=== PATIENT | female | born 1960 | race Caucasian/White ===

== ENCOUNTER 2021-11-13 19:00 | Inpatient (IN) | payer MEDICARE, OTHER ==
[~2021-11-13] VITALS: Ht 167.6 cm; Wt 50.0 kg
[2021-11-13 19:58] LABS: Hematocrit 40.3 % (33.0-51.0); Hemoglobin 13.6 g/dL (11.5-16.0); Mean Corpuscular HGB 29.6 pg (26.0-34.0); Mean Corpuscular HGB Conc 33.7 g/dL (31.5-36.5); Mean Corpuscular Volume 88 fL (80-100); Platelet Count 280 K/mm3 (150-400); RDW Coefficient Variation 17.5 % (11.7-14.2); RDW Standard Deviation 55.6 fL (35.1-46.3)
[2021-11-13 20:18] LABS: Albumin, Blood 2.3 g/dL (3.4-5.0); Albumin/Globulin Ratio 0.5 (0.8-1.8); Bilirubin, Total 0.2 mg/dL (0.1-1.0); Bun/Creatinine Ratio 19.5 (12.0-20.0); Calcium, Blood 8.1 mg/dL (8.5-10.1); Creatinine, Blood 0.72 mg/dL (0.40-1.00); Globulin, Blood 4.7 g/dL (2.2-4.0); Potassium, Blood 3.5 mmol/L (3.5-5.5)
[2021-11-13 20:19] LABS: Mean Platelet Volume 12.8 fL (9.1-12.4); White Blood Cell Count 23.77 K/mm3 (4.00-11.30)
[2021-11-13 20:22] LABS: BAND PERCENT MAN 2 % (0-8); BASOPHILS PERCENT MAN 0 % (0-2); EOSINOPHILS ABSOLUTE MAN 0.71 K/mm3 (0.00-0.68); EOSINOPHILS PERCENT MAN 3 % (0-6); LYMPHOCYTES ABSOLUTE MAN 1.42 K/mm3 (0.84-5.20); LYMPHOCYTES PERCENT MAN 6 % (21-46); MONOCYTES ABSOLUTE MAN 0.71 K/mm3 (0.16-1.47); MONOCYTES PERCENT MAN 3 % (4-13); MYELOCYTE ABSOLUTE MAN 0.47 K/mm3 (0.00-0.00); MYELOCYTE PERCENT MAN 2 % (0-0); NEUTROPHILS ABSOLUTE MAN 20.44 K/mm3 (1.96-9.15); SEG NEUTROPHILS PERCENT MAN 84 % (41-73); TOTAL CELLS COUNTED 100
[2021-11-13 20:33] LABS: Source, Urine Clean Catch
[2021-11-13 20:36] LABS: Bilirubin, Urine Neg (Neg); Blood, Urine 1+ (Neg); Glucose Qualitative, Urine Neg (Neg); Ketones, Urine Neg (Neg); Leukocyte Esterase, Urine 1+ (Neg); Nitrite, Urine Pos (Neg); Protein, Urine 2+ (Neg); Urobilinogen, Urine 1+ (Normal)
[2021-11-13 20:38] LABS: Appearance, Urine Hazy (Clear); Color, Urine Yellow (P-Yellow)
[2021-11-13 20:53] LABS: Bacteria Mod /hpf; Red Blood Cells, Urine 0-2 /hpf (0-2); Squamous Epithelial Cells Few /hpf (Few)
[2021-11-13 21:14] LABS: Influenza A, PCR NEGATIVE (NEGATIVE); Influenza B, PCR NEGATIVE (NEGATIVE); Resp Syncytial Virus, PCR NEGATIVE (NEGATIVE); SARS-Cov-2 (COVID-19) PCR, MMC NEGATIVE (NEGATIVE)
[2021-11-14 00:21] LABS: U Amphetamine Screen DETECTED; U Methamphetamine Screen DETECTED
[2021-11-14 00:22] LABS: U Barbituate Screen Not Detected; U Benzodiazapine Screen DETECTED; U Buprenorphine Screen Not Detected; U Cannabinoids Screen DETECTED; U Cocaine Screen Not Detected; U Methadone Screen Not Detected; U Opiates Screen Not Detected; U Oxycodone Screen Not Detected; U Phencyclidine Screen Not Detected; U Propoxyphene Screen Not Detected
[2021-11-14] MEDS ORDERED: DIAZEPAM10 MG PO (01:53)
[2021-11-14] MEDS ORDERED: POTCHL20ER PO (01:56)
[2021-11-14] MEDS ORDERED: ENTRESTO 24 MG1 EACH PO (01:57)
[2021-11-14] MEDS ORDERED: SPIR25 PO (01:58)
[2021-11-14] MEDS ORDERED: FURO20 PO (02:00)
[2021-11-14] MEDS ORDERED: IPRAT-ALBUT 0.5-3 ML INH (02:03)
[2021-11-14] MEDS ORDERED: ALBU2.5V5 INH (02:04)
[2021-11-14 04:23] LABS: BASOPHILS PERCENT AUTO 1 % (0-2); EOSINOPHILS ABSOLUTE AUTO 0.38 K/mm3 (0.00-0.68); EOSINOPHILS PERCENT AUTO 2 % (0-6); Hematocrit 36.9 % (33.0-51.0); Hemoglobin 12.5 g/dL (11.5-16.0); IMMATURE GRAN ABSOLUTE AUTO 0.77 K/mm3 (0.00-0.10); IMMATURE GRAN PERCENT AUTO 3 % (0-1); LYMPHOCYTES ABSOLUTE AUTO 1.93 K/mm3 (0.84-5.20); LYMPHOCYTES PERCENT AUTO 9 % (21-46); MONOCYTES ABSOLUTE AUTO 1.03 K/mm3 (0.16-1.47); MONOCYTES PERCENT AUTO 5 % (4-13); Mean Corpuscular HGB 29.6 pg (26.0-34.0); Mean Corpuscular HGB Conc 33.9 g/dL (31.5-36.5); Mean Corpuscular Volume 87 fL (80-100); NEUTROPHILS PERCENT AUTO 81 % (41-73); Platelet Count 289 K/mm3 (150-400); RDW Coefficient Variation 17.2 % (11.7-14.2); RDW Standard Deviation 55.5 fL (35.1-46.3); Red Blood Cell Count 4.22 M/mm3 (3.80-5.20); White Blood Cell Count 22.51 K/mm3 (4.00-11.30)
[2021-11-14 04:25] LABS: Mean Platelet Volume 13.5 fL (9.1-12.4)
[2021-11-14 04:43] LABS: Albumin, Blood 2.2 g/dL (3.4-5.0); Albumin/Globulin Ratio 0.5 (0.8-1.8); Bilirubin, Total 0.3 mg/dL (0.1-1.0); Bun/Creatinine Ratio 19.4 (12.0-20.0); Calcium, Blood 8.2 mg/dL (8.5-10.1); Creatinine, Blood 0.62 mg/dL (0.40-1.00); Globulin, Blood 4.1 g/dL (2.2-4.0); Potassium, Blood 3.8 mmol/L (3.5-5.5); Total Protein, Blood 6.3 g/dL (6.4-8.2)
--- NOTE | 2021-11-14 06:03 | NUR ---
SHIFT SUMMARY PT CAME TO PCU THIS AM FOR DYSPNEA AND SEPSIS. PT HAS C/O SOB AND WAS SATURATING >95% ON RA. TO HELP W/ DYSPNEA, RT PLACED THE PT ON CPAP AND STATED THAT SHE SHOULD BE ENCOURAGED TO WEAR IT MUCH POSSIBLE BUT CAN TAKE IT OFF DURING THE DAY. PT IS NOT HAVING ANY PAIN, ANGINA, OR DIZZINESS AT THIS TIME. PT IS IND W/ AMBULATION, BUT WAS EDUCATED TO CALL FOR ASSISTANCE WHEN GETTING UP TO THE BATHROOM BECAUSE OF SOME DIZZINESS WHEN IN THE ED. PT'S HAS BEEN AT BEDSIDE SINCE ADMISSION, AND THE PT IS RESTING. SHE HAS A BASKET W/ ALL HER MEDICATIONS, BUT THE LABLES ON SOME OF THE BOTTLES ARE NOT LEGABLE, PT DOES NOT KNOW EXACTLY WHAT THEY ARE, BUT TAKES THEM. SHE STATES THAT ONE OF HER DIURETICS MAKES HER SICK SO SHE DOES NOT TAKE IT DIRECTED. SHE IS ANXIOUS, BUT COOPERATIVE. WILL CONTINUE TO MONITOR UNTIL REPORT IS GIVEN TO THE ONCOMING SHIFT RN. SEE NOTES FOR ANY UPDATES.
--- NOTE | 2021-11-14 09:46 | NUR ---
ASSUMPTION OF CARE THIS RN ASSUMED CARE OF PATIENT AT 0700. REPORT TAKEN FROM MARAL REED. PATIENT'S VITALS STABLE. HTN NOTED THIS AM; PATIENT RECEIVED SCHEDULED MEDICATION; SEE EMAR. PATIENT A&O X4. CALM AND COOPERATIVE WITH CARE. ON RA WITH O2 SATS 94-97%. PATIENT INDEPENDENT WITH ADL'S; STEADY GAIT NOTED BY THIS RN. PATIENT BECAME NAUSEOUS AFTER BREAKFAST THIS AM; MEDICATED PER EMAR. PATIENT CALLING APPROPRIATELY. BED IN LOWEST POSITION AND CALL LIGHT WITHIN REACH. COMMODE PLACED AT BEDSIDE DUE TO LASIX AND FREQUENT URINATION. ECHO COMPLETED THIS AM.
[2021-11-14 12:38] LABS: CPK Creatine Kinase 33 U/L (26-193)
--- NOTE | 2021-11-14 16:39 | NUR ---
SHIFT SUMMARY PATIENT A&OX4. CALM AND COOPERATIVE WITH CARE. MEDICATING PER EMAR; DENIES PAIN. PATIENT HAD ECHO DONE THIS AM; EF OF 10%. FLATWORK FEEDER CONSULT PLACED/CALLED IN. FLATWORK FEEDER TO BEDSIDE THIS AM WITH PLANS FOR ANGIO TOMORROW MORNING 11/15. PATIENT SIGNED CONSENT AND DENIED FURTHER QUESTIONS FROM FLATWORK FEEDER. EDUCATION DONE THROUGHOUT SHIFT REGARDING FLUID INTAKE FOR PATIENT AND "" WHO IS AT BEDSIDE. PATIENT CONTINUES TO ASK FOR LIQUIDS FREQUENTLY; NO FLUID RESTRICTION CURRENTLY; REINFORCED EDUCATION DUE TO LOW EF. PATIENT INDEPENDENT WITH TRANSFERS/ADLs. COMMODE AT BEDSIDE DUE TO FREQUENCY/URGENCY DUE TO LASIX AND UTI. PATIENT ON REGULAR DIET CURRENTLY BUT WILL BE NPO AT MIDNIGHT FOR PROCEDURE IN THE MORNING. PATIENT ON 1-2L VIA NC TO MAINTAIN SATS >92%. MEDICATED PER EMAR WITH METOPROLOL PER FLATWORK FEEDER ORDER; SBP 90'S, MAP REMAINS >70. PATIENT DIAPHORETIC OFF/ON DURING THIS SHIFT. SR ON THE MONITOR WITH HR IN THE 80S. PATIENT CALLING APPROPRIATELY WITH BED IN LOWEST POSITION AND CALL LIGHT WITHIN REACH. THIS RN WILL CONTINUE TO MONITOR AND MEDICATE PER EMAR UNTIL SHIFT CHANGE AT 1900.
[2021-11-15 03:39] LABS: Anion Gap 6 mmol/L (6-16); Blood Urea Nitrogen 18 mg/dL (8-24); Bun/Creatinine Ratio 24.8 (12.0-20.0); CHOL/HDL RATIO 4.3; CO2, Blood 29 mmol/L (21-32); Calcium, Blood 9.3 mg/dL (8.5-10.1); Chloride, Blood 102 mmol/L (98-108); Cholesterol 151 mg/dL (50-200); Creatinine, Blood 0.73 mg/dL (0.40-1.00); Glomerular Filtration Rate 94 (60-); Glucose, Blood 202 mg/dL (70-99); HDL Cholesterol 35 mg/dL (>39); LDL/HDL RATIO 2.8; Low Density Lipoprotein Chol 99 mg/dL (0-110); Magnesium, Blood 1.9 mg/dL (1.6-2.4); Potassium, Blood 4.8 mmol/L (3.5-5.5); Sodium, Blood 137 mmol/L (136-145); Triglycerides 86 mg/dL (30-160); Very Low Density Lipoprot Chol 17 mg/dL (6-32)
--- NOTE | 2021-11-15 06:25 | NUR ---
SHIFT SUMMARY PT IS A&0X4, MOVES IND IN BED, VS HAVE BEEN STABLE T/O THE SHIFT, AND SHE HAS BEEN SLEEPING MAJORITY OF THE NIGHT. PT HAS BEEN NPO SINCE MIDNIGHT FOR ANGIO THIS AM. SHE HAS NO REPORTS OF SOB, ANGINA, NAUSEA, PAIN, OR DIZZINESS. HER SIGNIFICANT OTHER CALLED FOR AN UPDATE AND IS ON HIS WAY TO VISIT. WILL CONTINUE TO MONITOR UNTIL SHIFT REPORT IS GIVEN TO THE ONCOMING SHIFT RN. SEE NOTES FOR UPDATES.
--- NOTE | 2021-11-15 10:36 | NUR ---
AM NOTE: PATIENT ALERT AND ORIENTED X4. UP IND TO BSC. DENIES NUMBNESS/TINGLING. PERRLA. ON 2L NASAL CANNULA SATING MID 90'S. SOB WITH EXERTION. TELE SHOWING SINUS RHYTHM WITH HR 90-100'S. DENIES CHEST PAIN/PRESSURE. BP STABLE. NO SIGNS OF EDEMA. SPOKE WITH DR. IRAHETA THIS AM, PLAN TO DEFER ANGIO FOR NOW AND WAIT UNTIL INFECTION AND VOLUME OVERLOAD IS MORE CONTROLLED. PATIENT UPDATED AND UNDERSTANDING. AT BEDSIDE. DENIES ABDOMINAL PAIN. NAUSEA THIS AM, MEDICATED WITH ZOFRAN WITH GOOD RELIEF. DIET ORDERED SINCE NO ANGIO. ANTIBIOTICS INFUSED. CALLING FOR NEEDS. WILL CONTINUE TO MONITOR.
--- NOTE | 2021-11-15 17:51 | NUR ---
SHIFT SUMMARY: NO ACUTE CHANGES THROUGHOUT SHIFT. PATIENT REMAINS ALERT AND ORIENTED. WEARING 1-2L THROUGHOUT DAY, AT TIMES ON ROOM AIR SATING ABOVE 95%. TELE REMAINS SINUS RHYTHM WITH HR 80-90'S. BP STABLE. DENIES CHEST PAIN/PRESSURE. EATING WELL. DENIES ABDOMINAL PAIN/NAUSEA. UP TO BSC TO VOID. ABX INFUSED. MEDICATED X1 FOR NAUSEA. WITH GOOD RELIEF. IN AND UPDATED. WILL CONTINUE TO MONITOTR
[2021-11-16 04:21] LABS: Hematocrit 44.9 % (33.0-51.0); Hemoglobin 14.6 g/dL (11.5-16.0); Mean Corpuscular HGB Conc 32.5 g/dL (31.5-36.5); Mean Corpuscular Volume 89 fL (80-100); Mean Platelet Volume 13.1 fL (9.1-12.4); Platelet Count 455 K/mm3 (150-400); RDW Coefficient Variation 17.2 % (11.7-14.2); RDW Standard Deviation 55.4 fL (35.1-46.3); Red Blood Cell Count 5.04 M/mm3 (3.80-5.20); White Blood Cell Count 35.57 K/mm3 (4.00-11.30)
[2021-11-16 04:43] LABS: Albumin, Blood 2.2 g/dL (3.4-5.0); Albumin/Globulin Ratio 0.5 (0.8-1.8); Bilirubin, Total 0.2 mg/dL (0.1-1.0); Bun/Creatinine Ratio 31.2 (12.0-20.0); Calcium, Blood 9.2 mg/dL (8.5-10.1); Creatinine, Blood 0.74 mg/dL (0.40-1.00); Globulin, Blood 4.4 g/dL (2.2-4.0); Magnesium, Blood 1.7 mg/dL (1.6-2.4); Potassium, Blood 4.6 mmol/L (3.5-5.5); Total Protein, Blood 6.6 g/dL (6.4-8.2)
--- NOTE | 2021-11-16 06:30 | NUR ---
SHIFT SUMMARY PT IS A&OX4, IND IN HER ROOM, HAS BEEN ON RA MAJORITY OF THE SHIFT W/ SP02 >95%, AND HAS HAD NO C/O ANGINA OR SOB. PT STATES THAT SHE IS FEELING "PRETTY GOOD" TODAY AND HAS NO COMPLAINTS. AN ECHO DONE SHOWED AN EF OF 10% AND SHE WAS SCHEDULED FOR AN ANGIO ON 11/15 BUT IT WAS DEFFERED DUE TO A HIGH WBC LEVEL OF 22.5 ON 11/14. TODAYS AM LABS INDICATED A WBC LEVEL OF 35.57. DR. ANDERSEN CALLED AND THE PT WAS STARTED ON VANCOMYACIN. ALL VS HAVE BEEN STABLE TONIGHT. WILL CONTINUE TO TO MONITOR UNTIL REPORT IS GIVEN TO THE ONCOMING SHIFT RN. SEE NOTES FOR ANY UPDATES.
--- NOTE | 2021-11-16 17:20 | NUR ---
SHIFT SUMMARY PT IS ALERT AND ORIENTED X 4, SHE IS PLEASANT AND COOPERATIVE WITH CARE. HR AND BP STABLE, SHE HAS CONTINUED TO DENY FEELINGS OF CHEST PAIN/PRESSURE. SHE DENIES FEELING LIGHTHEADED/DIZZY WHEN AMBULATING. SHE HAS REPORTED FEELING FATIGUED AND THIS AM AFTER MEDICATION ADMINISTRATION REPORTED FEELING "CRUMMY." ZOFRAN GIVEN FOR NAUSEA, SEE EMAR. WARM BLANKET AND UNINTERRUPTED REST ALSO PROVIDED. SPO2 97% VIA ROOM AIR, SHE HAS CONTINUED TO DENY FEELING SOB, OCCASIONAL COUGH NOTED. IV IN LEFT FOREARM IS SALINE LOCKED. SHE IS INDEPENDENT TO BEDSIDE COMMODE. HER WAS AT BEDSIDE THIS AM. SPEECH THERAPY EVALUATED PT THIS AFTERNOON. NO ACUTE CHANGES NOTED. PT NOW WATCHING T.V, CALL LIGHT IN REACH. WILL CONTINUE TO MONITOR UNTIL REPORT GIVEN.
[2021-11-17 05:40] LABS: Hematocrit 46.5 % (33.0-51.0); Hemoglobin 15.6 g/dL (11.5-16.0); Mean Corpuscular HGB 29.5 pg (26.0-34.0); Mean Corpuscular HGB Conc 33.5 g/dL (31.5-36.5); Mean Corpuscular Volume 88 fL (80-100); Mean Platelet Volume 12.8 fL (9.1-12.4); Platelet Count 507 K/mm3 (150-400); RDW Coefficient Variation 16.8 % (11.7-14.2); RDW Standard Deviation 53.6 fL (35.1-46.3); Red Blood Cell Count 5.29 M/mm3 (3.80-5.20); White Blood Cell Count 18.78 K/mm3 (4.00-11.30)
[2021-11-17 06:06] LABS: BASOPHILS PERCENT MAN 0 % (0-2); EOSINOPHILS ABSOLUTE MAN 0.37 K/mm3 (0.00-0.68); EOSINOPHILS PERCENT MAN 2 % (0-6); LYMPHOCYTES ABSOLUTE MAN 4.13 K/mm3 (0.84-5.20); LYMPHOCYTES PERCENT MAN 22 % (21-46); METAMYELOCYTE ABSOLUTE MAN 0.18 K/mm3 (0.00-0.00); METAMYELOCYTE PERCENT MAN 1 % (0-0); MONOCYTES ABSOLUTE MAN 0.56 K/mm3 (0.16-1.47); MONOCYTES PERCENT MAN 3 % (4-13); MYELOCYTE ABSOLUTE MAN 0.75 K/mm3 (0.00-0.00); MYELOCYTE PERCENT MAN 4 % (0-0); NEUTROPHILS ABSOLUTE MAN 12.77 K/mm3 (1.96-9.15); SEG NEUTROPHILS PERCENT MAN 68 % (41-73); TOTAL CELLS COUNTED 100
[2021-11-17 06:18] LABS: Bun/Creatinine Ratio 32.9 (12.0-20.0); Calcium, Blood 9.2 mg/dL (8.5-10.1); Creatinine, Blood 0.91 mg/dL (0.40-1.00); Magnesium, Blood 1.9 mg/dL (1.6-2.4); Potassium, Blood 4.4 mmol/L (3.5-5.5)
--- NOTE | 2021-11-17 06:57 | NUR ---
SHIFT SUMMARY: PATIENT VSS ON RA T/O NIGHT. DENIES CHEST PAIN/SOB/N/V/D. MEDICATED PER EMAR. WBC IMPROVED FROM YESTERDAY. PATIENT NPO SINCE MIDNIGHT. PLEASANT AND COOPERATIVE WITH CARE. NO ADVERSE EVENTS THIS SHIFT. BED LOW WITH CALL LIGHT IN PLACE. WILL CONTINUE TO MONITOR AND REPORT TO DAY RN.
--- NOTE | 2021-11-17 12:34 | NUR ---
UPDATE/TRANSFER OF CARE THIS RN ENTERED THE ROOM AND MEASURED VITALS. PT WAS ALERT AND REQUESTED A WARM BLANKET WHICH WAS PROVIDED. BLOOD PRESSURE RETURNED AT 91/67. THIS RN LEFT THE ROOM. THE PT'S SPOUSE EXITED THE ROOM TO NOTIFY THIS RN OF AN ALARM. THIS RN ENTERED THE ROOM AND NOTED A BLOOD PRESSURE ON THE MONITOR OF 75/33. THIS RN REPOSITIONED THE BLOOD PRESSURE CUFF AND RETURNED A READING OF 51/35. THIS RN ACTIVATED THE RAPID RESPONSE TEAM IN UNIT AND CALLED THE ARBORICULTURE TEACHER AND HOSPITALIST MANAGING THIS PT. PT WAS THEN TRANSFERRED TO ICU AND BEDSIDE REPORT WAS GIVEN TO MIGUEL ANGEL FAJARDO RN.
--- NOTE | 2021-11-17 13:20 | NUR ---
ASSUMED CARE: PT TRANSFERRED TO ICU FOR CARDIOGENIC SHOCK. DECREASED BP AND DIAPHORETIC. ICU RADIATION OFFICER AT BEDSIDE WITH RESIDENT. PT TRANSFERRED TO ICU 11. DR IRAHETA AND DR GOODMAN CAME TO SEE PT. UPON ARRIVAL TO UNIT, PT WAS ON DOPAMINE AT 10MCG/KG. DR IRAHETA ADVISED FOR LEVOPHED. STARTED THIS AT 5MCG/KG. DOPAMINE TITRATE TO 5MCG. SHORTLY THEREAFTER LEVOPHED TITRATED TO 2MCG THEN OFF. DR IRAHETA ADVISED LEVOPHED TO BE TITRATED DOWN TO 2MCG/KG BUT PT'S VITAL SIGNS DID NOT SUPPORT THIS. RETURNED TO 5MCG. DR IRAHETA CAME INTO ROOM AND TITRATED LEVOPHED TO 4MCG/KG WHICH IS WHERE SETTING IS NOW. PT'S AT BEDSIDE. BOLUS OF 500CC NS COMPLETED. PT ALERT AND TALKING TO STAFF AT THIS TIME. STATES HER NAME, , AND AWARE OF WHERE SHE IS. CALL LIGHT IN REACH
[2021-11-17 13:42] LABS: Hematocrit 47.8 % (33.0-51.0); Hemoglobin 15.7 g/dL (11.5-16.0); Mean Corpuscular HGB 29.4 pg (26.0-34.0); Mean Corpuscular HGB Conc 32.8 g/dL (31.5-36.5); Mean Corpuscular Volume 90 fL (80-100); Mean Platelet Volume 12.8 fL (9.1-12.4); NRBC ABSOLUTE 0.02 K/mm3 (0.00-0.02); NRBC Auto 0.1 /100 WBC (0.0-0.2); Platelet Count 653 K/mm3 (150-400); RDW Standard Deviation 55.7 fL (35.1-46.3); Red Blood Cell Count 5.34 M/mm3 (3.80-5.20); White Blood Cell Count 25.94 K/mm3 (4.00-11.30)
[2021-11-17 13:44] LABS: Albumin, Blood 2.7 g/dL (3.4-5.0); Albumin/Globulin Ratio 0.6 (0.8-1.8); Bilirubin, Total 0.2 mg/dL (0.1-1.0); Bun/Creatinine Ratio 31.6 (12.0-20.0); Calcium, Blood 9.6 mg/dL (8.5-10.1); Creatinine, Blood 0.92 mg/dL (0.40-1.00); Globulin, Blood 4.6 g/dL (2.2-4.0); Potassium, Blood 4.6 mmol/L (3.5-5.5); Total Protein, Blood 7.3 g/dL (6.4-8.2)
[2021-11-17 15:05] LABS: BAND PERCENT MAN 1 % (0-8); BASOPHILS ABSOLUTE MAN 0.25 K/mm3 (0.00-0.23); BASOPHILS PERCENT MAN 1 % (0-2); EOSINOPHILS ABSOLUTE MAN 1.03 K/mm3 (0.00-0.68); EOSINOPHILS PERCENT MAN 4 % (0-6); LYMPHOCYTES PERCENT MAN 22 % (21-46); METAMYELOCYTE ABSOLUTE MAN 0.51 K/mm3 (0.00-0.00); METAMYELOCYTE PERCENT MAN 2 % (0-0); MONOCYTES ABSOLUTE MAN 1.03 K/mm3 (0.16-1.47); MONOCYTES PERCENT MAN 4 % (4-13); MYELOCYTE ABSOLUTE MAN 0.51 K/mm3 (0.00-0.00); MYELOCYTE PERCENT MAN 2 % (0-0); NEUTROPHILS ABSOLUTE MAN 16.86 K/mm3 (1.96-9.15); SEG NEUTROPHILS PERCENT MAN 64 % (41-73); TOTAL CELLS COUNTED 100
--- NOTE | 2021-11-17 15:49 | NUR ---
THIS RN NOTED THAT ABG WAS NOT COMPLETED DURING PT'S HYPOTENSION EPISODE. CALL TO DR THOMASON WHO FELT IT WAS NOT NEEDED BASED ON PT'S CURRENT VITALS. DR GOODMAN CALLED TO CHECK ON PT AND STATED HE DID NOT FEEL IT WAS NECESSARY EITHER.
[2021-11-17 16:51] LABS: Vancomycin, Trough 14.2 ug/mL (5.0-10.0)
--- NOTE | 2021-11-17 18:27 | NUR ---
SHIFT SUMMARY: PT HAS BEEN OFF LEVOPHED SINCE 1515. VSS. DR IRAHETA CAME TO CHECK ON PT WITH NO CHANGES TO ORDERS. RA, NSR ON TELE. AT BEDSIDE. NO ACUTE NEEDS OR CONCERNS AT THIS TIME.
--- NOTE | 2021-11-17 20:00 | NUR ---
ASSUMED CARE: PT RESTING ON ROOM AIR. RIGHT RADIAL SITE INTACT WITH NO BRUISING OR SIGNS OF BLEEDING. ADDRESSED NEEDS AT THIS TIME.
[2021-11-18 03:30] LABS: Hematocrit 46.3 % (33.0-51.0); Hemoglobin 15.8 g/dL (11.5-16.0); Mean Corpuscular HGB 29.5 pg (26.0-34.0); Mean Corpuscular HGB Conc 34.1 g/dL (31.5-36.5); Mean Corpuscular Volume 87 fL (80-100); Mean Platelet Volume 12.8 fL (9.1-12.4); Platelet Count 485 K/mm3 (150-400); RDW Coefficient Variation 16.6 % (11.7-14.2); RDW Standard Deviation 52.5 fL (35.1-46.3); Red Blood Cell Count 5.35 M/mm3 (3.80-5.20)
[2021-11-18 03:31] LABS: NRBC ABSOLUTE 0.02 K/mm3 (0.00-0.02); NRBC Auto 0.1 /100 WBC (0.0-0.2); White Blood Cell Count 21.63 K/mm3 (4.00-11.30)
[2021-11-18 03:48] LABS: Bun/Creatinine Ratio 32.5 (12.0-20.0); Calcium, Blood 8.6 mg/dL (8.5-10.1); Creatinine, Blood 0.77 mg/dL (0.40-1.00); Potassium, Blood 4.7 mmol/L (3.5-5.5)
[2021-11-18 03:52] LABS: BASOPHILS ABSOLUTE MAN 0.21 K/mm3 (0.00-0.23); BASOPHILS PERCENT MAN 1 % (0-2); EOSINOPHILS ABSOLUTE MAN 0.64 K/mm3 (0.00-0.68); EOSINOPHILS PERCENT MAN 3 % (0-6); LYMPHOCYTES ABSOLUTE MAN 5.19 K/mm3 (0.84-5.20); LYMPHOCYTES PERCENT MAN 24 % (21-46); METAMYELOCYTE ABSOLUTE MAN 0.43 K/mm3 (0.00-0.00); METAMYELOCYTE PERCENT MAN 2 % (0-0); MONOCYTES ABSOLUTE MAN 0.43 K/mm3 (0.16-1.47); MONOCYTES PERCENT MAN 2 % (4-13); MYELOCYTE ABSOLUTE MAN 0.21 K/mm3 (0.00-0.00); MYELOCYTE PERCENT MAN 1 % (0-0); NEUTROPHILS ABSOLUTE MAN 14.49 K/mm3 (1.96-9.15); SEG NEUTROPHILS PERCENT MAN 67 % (41-73); TOTAL CELLS COUNTED 100
--- NOTE | 2021-11-18 05:58 | NUR ---
SHIFT SUMMARY: PT PLACED ON 2L NC OVERNIGHT. HYDROXYZINE GIVEN ONCE. PT RESTING COMFORTABLY IN BED.
--- NOTE | 2021-11-18 10:18 | NUR ---
PT A/O X4. DENIES PAIN, CP, SOB, AND N/V. R RADIAL ACCESS SITE IS STABLE, NO SIGN OF BLEEDING. PT CHANGED TO PCU STATUS. NO SIGN OF DISTRESS.
[2021-11-18] MEDS ORDERED: ASPI81CH PO (15:46)
[2021-11-18] MEDS ORDERED: ATOR40TA PO (15:46)
[2021-11-18] MEDS ORDERED: Nicoderm Cq1 EAC1 TOP (15:47)
[2021-11-18] MEDS ORDERED: POTCHL20ER PO (15:48)
[2021-11-18] MEDS ORDERED: LOSA25 PO (15:50)
[2021-11-18] MEDS ORDERED: Toprol Xl25 MG PO (15:51)
--- NOTE | 2021-11-18 16:12 | NUR ---
SUMMARY PT A/O X4. DENIES PAIN ALL DAY. NO BP ISSUES TODAY. R RADIAL ACCESS SITE IS STABLE. PT OK FOR DISCHARGE. D/C INSTRUCTIONS GONE OVER WITH PT AND . NO SIGN OF DISTRESS PT LEAVES THE UNIT. PT GIVEN LIST OF [facility]PTING [facility] WILL BE FOLLOWING UP WITH PT TO MAKE OUTPT APPOINTMENT.
== END 2021-11-18 16:08 | disposition home or self-care (01) | DRG 286 ==
LOC: ER 19:00 → ICUW 11-14 00:23 → ER 11-14 00:23 → PCU 11-14 02:06 → ICUW 11-17 12:21 → ICUE 11-17 18:13
PROVIDERS: Emergency Medicine; Family Medicine; Internal Medicine; Internal Medicine Cardiovascular Disease; Student in an Organized Health Care Education/Training Program; ADMIT Internal Medicine
PROC: 3E03329 Introduction of Other Anti-infective into Peripheral Vein, Percutaneous Approach (ICD-10-PCS; 2021-11-14)
PROC: 4A023N7 Measurement of Cardiac Sampling and Pressure, Left Heart, Percutaneous Approach (ICD-10-PCS; 2021-11-15)
PROC: B2111ZZ Fluoroscopy of Multiple Coronary Arteries using Low Osmolar Contrast (ICD-10-PCS; 2021-11-15)
PROC: 3E033XZ Introduction of Vasopressor into Peripheral Vein, Percutaneous Approach (ICD-10-PCS; principal; 2021-11-17)
PROC: 4A023N7 Measurement of Cardiac Sampling and Pressure, Left Heart, Percutaneous Approach (ICD-10-PCS; 2021-11-17)
PROC: B2111ZZ Fluoroscopy of Multiple Coronary Arteries using Low Osmolar Contrast (ICD-10-PCS; 2021-11-17)
DX: I11.0 Hypertensive heart disease with heart failure (principal); A41.9 Sepsis, unspecified organism; E43 Unspecified severe protein-calorie malnutrition; I50.23 Acute on chronic systolic (congestive) heart failure; J96.21 Acute and chronic respiratory failure with hypoxia; J69.0 Pneumonitis due to inhalation of food and vomit; J18.9 Pneumonia, unspecified organism; N39.0 Urinary tract infection, site not specified; J44.0 Chronic obstructive pulmonary disease with (acute) lower respiratory infection; I42.8 Other cardiomyopathies; I25.10 Atherosclerotic heart disease of native coronary artery without angina pectoris; I95.9 Hypotension, unspecified; F15.10 Other stimulant abuse, uncomplicated; F17.210 Nicotine dependence, cigarettes, uncomplicated; R73.9 Hyperglycemia, unspecified; B18.2 Chronic viral hepatitis C; E78.5 Hyperlipidemia, unspecified; Z91.038 Other insect allergy status; Z91.048 Other nonmedicinal substance allergy status; Z79.899 Other long term (current) drug therapy; Z71.6 Tobacco abuse counseling; Z91.199 Patient's noncompliance with other medical treatment and regimen due to unspecified reason; Z88.6 Allergy status to analgesic agent; Z88.5 Allergy status to narcotic agent; Z88.0 Allergy status to penicillin; I25.2 Old myocardial infarction; Z95.5 Presence of coronary angioplasty implant and graft
CPT/HCPCS: 0241U; 36415; 71045; 71046; 76937; 80048; 80053; 80061; 80202; 81001; 82550; 82947; 83036; 83605; 83735; 83880; 84484; 85007; 85025; 85027; 87040; 87070; 87077; 87086; 87186; 87205; 92610; 93005; 93010; 93306; 93458; 94640; 94660; 94664; 94762; 96365; 96367; 96375; 99152; 99153; 99285-25; A9270; C1769; C1887; C1894; J0456; J0696; J1170; J1265; J1644; J1650; J1940; J2250; J2405; J2930; J3010; J3370; J7030; J7040; J7050; J7060; Q9967

== ENCOUNTER 2022-08-16 18:21 | Inpatient (IN) | payer MEDICARE, OTHER ==
[~2022-08-16] VITALS: Ht 167.6 cm; Wt 45.9 kg
[~2022-08-16 18:21] MED LIST: ALBU2.5V5 INH; ASPI81CH PO; ATOR40TA PO; DIAZEPAM10 MG PO; ENTRESTO 24 MG1 EACH PO; FURO20 PO; IPRAT-ALBUT 0.5-3 ML INH; LOSA25 PO; Nicoderm Cq1 EAC1 TOP; POTCHL20ER PO; SPIR25 PO; Toprol Xl25 MG PO
[2022-08-16 20:53] LABS: Albumin, Blood 2.6 g/dL (3.4-5.0); Albumin/Globulin Ratio 0.5 (0.8-1.8); Bilirubin, Total 0.3 mg/dL (0.1-1.0); Bun/Creatinine Ratio 18.4 (12.0-20.0); Calcium, Blood 8.8 mg/dL (8.5-10.1); Creatinine, Blood 2.56 mg/dL (0.40-1.00); Globulin, Blood 5.6 g/dL (2.2-4.0); Potassium, Blood 4.7 mmol/L (3.5-5.5); Total Protein, Blood 8.2 g/dL (6.4-8.2)
[2022-08-16 21:11] LABS: Hematocrit 37.6 % (33.0-51.0); Hemoglobin 12.4 g/dL (11.5-16.0); Mean Corpuscular HGB 29.5 pg (26.0-34.0); Mean Corpuscular Volume 89 fL (80-100); RDW Coefficient Variation 15.9 % (11.7-14.2); RDW Standard Deviation 51.6 fL (35.1-46.3); Red Blood Cell Count 4.21 M/mm3 (3.80-5.20)
[2022-08-16 21:14] LABS: White Blood Cell Count 127.93 K/mm3 (4.00-11.30)
[2022-08-16 21:38] LABS: Influenza A, PCR NEGATIVE (NEGATIVE); Influenza B, PCR NEGATIVE (NEGATIVE); Resp Syncytial Virus, PCR NEGATIVE (NEGATIVE); SARS-Cov-2 (COVID-19) PCR, MMC NEGATIVE (NEGATIVE)
[2022-08-16 21:53] LABS: Source, Urine Straight Cath
[2022-08-16 22:18] LABS: BAND PERCENT MAN 2 % (0-8); BASOPHILS PERCENT MAN 0 % (0-2); EOSINOPHILS PERCENT MAN 0 % (0-6); LYMPHOCYTES ABSOLUTE MAN 1.27 K/mm3 (0.84-5.20); LYMPHOCYTES PERCENT MAN 1 % (21-46); METAMYELOCYTE ABSOLUTE MAN 1.27 K/mm3 (0.00-0.00); METAMYELOCYTE PERCENT MAN 1 % (0-0); MONOCYTES PERCENT MAN 0 % (4-13); MYELOCYTE ABSOLUTE MAN 2.55 K/mm3 (0.00-0.00); MYELOCYTE PERCENT MAN 2 % (0-0); NEUTROPHILS ABSOLUTE MAN 122.81 K/mm3 (1.96-9.15); SEG NEUTROPHILS PERCENT MAN 94 % (41-73); TOTAL CELLS COUNTED 100
[2022-08-16 22:20] LABS: Platelet Count 274 K/mm3 (150-400)
[2022-08-16 22:27] LABS: Bilirubin, Urine Neg (Neg); Blood, Urine Neg (Neg); Glucose Qualitative, Urine Neg (Neg); Ketones, Urine Neg (Neg); Leukocyte Esterase, Urine Neg (Neg); Nitrite, Urine Neg (Neg); Protein, Urine 3+ (Neg); Specific Gravity, Urine 1.025 (1.003-1.022); Urobilinogen, Urine NORM (Normal)
[2022-08-16 22:37] LABS: Appearance, Urine Hazy (Clear); Color, Urine Yellow (P-Yellow)
[2022-08-16 22:40] LABS: Bacteria Few /hpf; Granular Casts 0-2 /lpf (0); Hyaline Casts 0-2 /lpf (0-2); Red Blood Cells, Urine 0-2 /hpf (0-2); Squamous Epithelial Cells Not Seen /hpf (Few); White Blood Cells, Urine 0-2 /hpf (0-5)
[2022-08-16 22:41] LABS: U Amphetamine Screen DETECTED; U Cannabinoids Screen DETECTED; U Methamphetamine Screen DETECTED
[2022-08-16 22:42] LABS: U Barbituate Screen Not Detected; U Benzodiazapine Screen DETECTED; U Buprenorphine Screen Not Detected; U Cocaine Screen Not Detected; U Methadone Screen Not Detected; U Opiates Screen Not Detected; U Oxycodone Screen Not Detected; U Phencyclidine Screen Not Detected; U Propoxyphene Screen Not Detected
[2022-08-16 23:16] LABS: Base Excess Venous -8.4 mmol/L; Bicarbonate Venous 18.5 mmol/L (24.0-30.0); PCO2 Venous 32.1 mmHg (38-42); pH Blood Venous 7.34 (7.34-7.37)
[2022-08-16 23:18] LABS: Uric Acid, Blood 9.9 mg/dL (2.6-6.0)
[2022-08-17] VITALS (21 sets, daily range): BP systolic 73–114; BP diastolic 49–90
--- NOTE | 2022-08-17 00:58 | NUR ---
REVIEWED INFORMATION R/T ADMINISTERING THE CHEMO MED R/T ELEVATED WBC
--- NOTE | 2022-08-17 03:00 | NUR ---
PHYSICIAN COMMUNICATION NOTIFIED EXPLOSIVES ENGINEER RESIDENT, DR WU, THAT THE PATIENT'S HEART RATE WAS TRENDING UP, TOUCHING THE 130'S, AND THAT HER BLOOD PRESSURE WAS TRENDING DOWN. DR WU TO INPUT ORDER.
[2022-08-17 04:35] LABS: Hematocrit 32.8 % (33.0-51.0); Hemoglobin 10.8 g/dL (11.5-16.0); Mean Corpuscular HGB 29.7 pg (26.0-34.0); Mean Corpuscular HGB Conc 32.9 g/dL (31.5-36.5); Mean Corpuscular Volume 90 fL (80-100); Platelet Count 227 K/mm3 (150-400); RDW Coefficient Variation 15.5 % (11.7-14.2); RDW Standard Deviation 50.6 fL (35.1-46.3); Red Blood Cell Count 3.64 M/mm3 (3.80-5.20)
[2022-08-17 05:00] LABS: White Blood Cell Count 115.15 K/mm3 (4.00-11.30)
[2022-08-17 05:20] LABS: BAND PERCENT MAN 1 % (0-8); BASOPHILS PERCENT MAN 0 % (0-2); EOSINOPHILS PERCENT MAN 0 % (0-6); MONOCYTES PERCENT MAN 0 % (4-13); MYELOCYTE PERCENT MAN 4 % (0-0); NEUTROPHILS ABSOLUTE MAN 110.54 K/mm3 (1.96-9.15); SEG NEUTROPHILS PERCENT MAN 95 % (41-73); TOTAL CELLS COUNTED 100
[2022-08-17 05:31] LABS: Alanine Aminotransfer (ALT/SGP 18 U/L (12-78); Albumin, Blood 0.5 g/dL (3.4-5.0); Albumin/Globulin Ratio 0.1 (0.8-1.8); Alk Phos 154 U/L (50-136); Anion Gap 24 mmol/L (6-16); Aspartate Aminotrans (AST/SGOT 28 U/L (12-37); Bilirubin, Total 0.1 mg/dL (0.1-1.0); Blood Urea Nitrogen 10 mg/dL (8-24); Bun/Creatinine Ratio 13.4 (12.0-20.0); CO2, Blood 4 mmol/L (21-32); Chloride, Blood 103 mmol/L (98-108); Creatinine, Blood 0.75 mg/dL (0.40-1.00); Glomerular Filtration Rate 91 (60-); Glucose, Blood 35 mg/dL (70-99); Potassium, Blood 4.3 mmol/L (3.5-5.5); Sodium, Blood 131 mmol/L (136-145); Total Protein, Blood 6.5 g/dL (6.4-8.2)
[2022-08-17 05:32] LABS: Calcium, Blood <5.0 mg/dL (8.5-10.1)
--- NOTE | 2022-08-17 06:04 | NUR ---
Spoke with on-call resident- Dr. Lee this AM regarding pt AM labs and critical values (CO 2 4, Glucose 30s, Ca less than 5). PT POC glucose was mid 100s with no PO intake. Orders to redraw along with V[facility]
[2022-08-17] MEDS ORDERED: ENTRESTO 24 MG1 EACH PO (06:09)
[2022-08-17] MEDS ORDERED: ALDACTONE25 MG PO (06:10)
[2022-08-17] MEDS ORDERED: DIAZ10 PO (06:10)
[2022-08-17 06:36] LABS: Base Excess Venous -6.4 mmol/L; Bicarbonate Venous 18.5 mmol/L (24.0-30.0); PCO2 Venous 48.6 mmHg (38-42)
[2022-08-17 06:37] LABS: pH Blood Venous 7.24 (7.34-7.37)
--- NOTE | 2022-08-17 06:38 | NUR ---
SHIFT SUMMARY PATIENT ALERT AND ORIENTED X4. WAS VERY DROWSY UPON ADMIT, SLIDE TRANSFER COMPLETED DUE TO PATIENT WEAKNESS. PATIENT THIN AND FRAIL, DENIES ANY PAIN OR SHORTNESS OF BREATH. PATIENT HAS A CONGESTED, NON-PRODUCTIVE COUGH. ON 3 LITERS O2 VIA NC, PATIENT TACHYPNIC. PATIENT RECEIVED A FLUID BOLUS PER DR WU, CONTINUES TO BE HYPOTENSIVE AND TACHYCARDIC. PATIENT EDUCATED ON FIRE SAFETY AND IGNITION SOURCES IN THE HOSPITAL. WILL CONTINUE TO MONITOR. CALL LIGHT WITHIN REACH.
[2022-08-17 06:51] LABS: Hematocrit 32.5 % (33.0-51.0); Hemoglobin 10.9 g/dL (11.5-16.0); Mean Corpuscular HGB 29.5 pg (26.0-34.0); Mean Corpuscular HGB Conc 33.5 g/dL (31.5-36.5); Mean Corpuscular Volume 88 fL (80-100); Platelet Count 282 K/mm3 (150-400); RDW Coefficient Variation 15.6 % (11.7-14.2); RDW Standard Deviation 50.2 fL (35.1-46.3); Red Blood Cell Count 3.69 M/mm3 (3.80-5.20)
[2022-08-17 06:56] LABS: White Blood Cell Count 118.76 K/mm3 (4.00-11.30)
[2022-08-17 07:06] LABS: Albumin, Blood 2.2 g/dL (3.4-5.0); Albumin/Globulin Ratio 0.4 (0.8-1.8); Bilirubin, Total 0.2 mg/dL (0.1-1.0); Bun/Creatinine Ratio 21.2 (12.0-20.0); Creatinine, Blood 2.03 mg/dL (0.40-1.00); Globulin, Blood 5.3 g/dL (2.2-4.0); Magnesium, Blood 1.8 mg/dL (1.6-2.4); Potassium, Blood 4.5 mmol/L (3.5-5.5); Total Protein, Blood 7.5 g/dL (6.4-8.2)
[2022-08-17 07:20] LABS: BAND PERCENT MAN 2 % (0-8); BASOPHILS PERCENT MAN 0 % (0-2); EOSINOPHILS ABSOLUTE MAN 1.18 K/mm3 (0.00-0.68); EOSINOPHILS PERCENT MAN 1 % (0-6); LYMPHOCYTES ABSOLUTE MAN 1.18 K/mm3 (0.84-5.20); LYMPHOCYTES PERCENT MAN 1 % (21-46); METAMYELOCYTE ABSOLUTE MAN 2.37 K/mm3 (0.00-0.00); METAMYELOCYTE PERCENT MAN 2 % (0-0); MONOCYTES PERCENT MAN 0 % (4-13); SEG NEUTROPHILS PERCENT MAN 94 % (41-73); TOTAL CELLS COUNTED 100
--- NOTE | 2022-08-17 07:57 | NUR ---
DR SAHA CALLED ABOUT PLACING A REECTAL TUBE PT WAS NOTED TO HAVE CONSTANT FLOW OF DARK GREEN DIARRHEA. RECTAL TUBE PLACED WITHOUT INCIDENT.
--- NOTE | 2022-08-17 09:55 | NUR ---
CONSULTED WITH DR JOHNSON ABOUT VALIUM ADMINISTRATION. THIS RN TO ROOM TO ADMINISTER VALIUM PT IS SLEEPING, SHE HAD BEEN TALKING WITH DR JOHNSON A FEW MOMENTS AGO. SHE REPORTS FEELING "GROGGY" IS, DECISION WAS MADE TO HOLD VALIUM AT THIS TIME
[2022-08-17 10:14] LABS: Percent Saturation 20.2 % (15.0-50.0); Thyroid Stimulating Hormone 0.505 uIU/mL (0.360-4.800)
--- NOTE | 2022-08-17 12:53 | NUR ---
FLUIDS CHANGED PER ORDERS. URINE AND NASAL SWABS SENT TO LAB. [facility] CALLED FOR UPDATE. PT REMAINS FEELING "GROGGY" WILL HOLD VALIUM UNTIL SHE FEELS MORE AWAKE OR ALERT.
--- NOTE | 2022-08-17 13:07 | NUR ---
Spoke with Primary RN Rowena and discussed case. Pt resting in bed with her eyes closed. Pt wakes to moderate level of verbal stimuli. Offered supportive visit and reviewed plan of care. Pt denies pain at this time. She reports dyspnea has improved but remains SOB. Pt reporting wanting to go home today. Validated concerns and continued therapeutic listening. Pt does appear dyspneic as evidenced by work of breathing when speaking. Called and spoke with Pt's daughter in law Jose. Provided update and listened as Jose reports Pt did not want to come to the hospital. She reports taking 3 days to convince Pt in coming to the hospital. She is requesting this RN to meet with her in Pt's room at approximately 1500 to have a goals of care conversation including consider hospice. Spoke with Dr Barron and discussed case. Dr Barron agrees Pt may benefit from consideration of hospice. Plan: Meet with family and Pt at 1500 to discuss goals of care. Palliative Care will remain available.
[2022-08-17 14:18] LABS: PCO2 Arterial 34.5 mmHg (35-45); PO2 Arterial 70.9 mmHg (80-100); pH Blood Arterial 7.38 (7.35-7.45)
[2022-08-17 14:29] LABS: Hematocrit 33.2 % (33.0-51.0); Mean Corpuscular HGB 29.8 pg (26.0-34.0); Mean Corpuscular HGB Conc 33.1 g/dL (31.5-36.5); Mean Corpuscular Volume 90 fL (80-100); Platelet Count 287 K/mm3 (150-400); RDW Coefficient Variation 15.7 % (11.7-14.2); RDW Standard Deviation 51.3 fL (35.1-46.3); Red Blood Cell Count 3.69 M/mm3 (3.80-5.20)
--- NOTE | 2022-08-17 14:44 | NUR ---
PT HAS REMOVED RECTAL TUBE, WILL LEAVE IT OUT FOR THIS TIME.
[2022-08-17 14:49] LABS: Albumin, Blood 2.2 g/dL (3.4-5.0); Albumin/Globulin Ratio 0.4 (0.8-1.8); Bilirubin, Total 0.2 mg/dL (0.1-1.0); Bun/Creatinine Ratio 21.6 (12.0-20.0); Calcium, Blood 8.5 mg/dL (8.5-10.1); Creatinine, Blood 1.71 mg/dL (0.40-1.00); Potassium, Blood 4.4 mmol/L (3.5-5.5); Total Protein, Blood 7.2 g/dL (6.4-8.2)
[2022-08-17 15:47] LABS: BASOPHILS PERCENT MAN 0 % (0-2); EOSINOPHILS PERCENT MAN 0 % (0-6); LYMPHOCYTES ABSOLUTE MAN 2.18 K/mm3 (0.84-5.20); LYMPHOCYTES PERCENT MAN 2 % (21-46); METAMYELOCYTE ABSOLUTE MAN 1.09 K/mm3 (0.00-0.00); METAMYELOCYTE PERCENT MAN 1 % (0-0); MONOCYTES PERCENT MAN 0 % (4-13); MYELOCYTE ABSOLUTE MAN 1.09 K/mm3 (0.00-0.00); MYELOCYTE PERCENT MAN 1 % (0-0); NEUTROPHILS ABSOLUTE MAN 104.64 K/mm3 (1.96-9.15); SEG NEUTROPHILS PERCENT MAN 96 % (41-73); TOTAL CELLS COUNTED 100
--- NOTE | 2022-08-17 17:23 | NUR ---
PT HAS BEEN "GROGGY" FOR THIS SHIFT, PT HAS BEEN ASLEEP CONTINUOUSLY WHEN STAFF NOT IN ROOM. PRESSURES HAD BEEN SOFT UNTIL THIS EVENING. FLUIDS WERE STOPPED BY DR SAHA THIS AFTERNOON. PT HAS NOT RECIEVED VALIUM FOR THIS SHIFT SHE IS "GROGGY". PT HAD A PUREWICK AND RECTAL TUBE PLACED THIS MORINING PT HAS SINCE REMOVED THESE, PT NOW IN ATTENDS ONLY SHE WILL NOT LEAVE PUREWICK IN PLACE. PT'S "DAUGHTER IN LAW ESME" HAD CALLED THIS AFTERNOON ASKING TO SPEAK TO PALLIATIVE CARE, WHEN SHE SPOKE WITH PALLIATIVE CARE SHE STATED THAT SHE WOULD BE HERE AT 1500 TO DISCUSS PT'S CARE, BUT THEN CALLED TO CANCEL THE MEETING SHE SAT UP. PT HAS BEEN TO CT TODAY, SHE HAD A RENAL ULTRASOUND MOMENTS AGO. PT DID WORK WITH PHYSCIAL THERAPY TODAY.
--- NOTE | 2022-08-17 18:32 | NUR ---
PT EDUCATED ABOUT FIRE SAFETY AND NOT SMOKING OR USING ANYTHING IGNITION SOURCES IN HOSPITAL
[2022-08-18 00:09] VITALS: BP 97/64
[2022-08-18 03:32] VITALS: BP 86/55
[2022-08-18 04:26] LABS: Hematocrit 30.9 % (33.0-51.0); Hemoglobin 10.3 g/dL (11.5-16.0); Mean Corpuscular HGB 29.7 pg (26.0-34.0); Mean Corpuscular HGB Conc 33.3 g/dL (31.5-36.5); Mean Corpuscular Volume 89 fL (80-100); Platelet Count 237 K/mm3 (150-400); RDW Coefficient Variation 15.6 % (11.7-14.2); RDW Standard Deviation 50.3 fL (35.1-46.3); Red Blood Cell Count 3.47 M/mm3 (3.80-5.20)
[2022-08-18 04:30] LABS: White Blood Cell Count 95.19 K/mm3 (4.00-11.30)
[2022-08-18 04:50] LABS: Albumin, Blood 1.8 g/dL (3.4-5.0); Albumin/Globulin Ratio 0.4 (0.8-1.8); Bilirubin, Total 0.3 mg/dL (0.1-1.0); Creatinine, Blood 1.41 mg/dL (0.40-1.00); Globulin, Blood 4.8 g/dL (2.2-4.0); Potassium, Blood 4.6 mmol/L (3.5-5.5); Total Protein, Blood 6.6 g/dL (6.4-8.2)
[2022-08-18 05:05] LABS: BAND PERCENT MAN 2 % (0-8); BASOPHILS PERCENT MAN 0 % (0-2); EOSINOPHILS PERCENT MAN 0 % (0-6); LYMPHOCYTES ABSOLUTE MAN 0.95 K/mm3 (0.84-5.20); LYMPHOCYTES PERCENT MAN 1 % (21-46); MONOCYTES ABSOLUTE MAN 0.95 K/mm3 (0.16-1.47); MONOCYTES PERCENT MAN 1 % (4-13); MYELOCYTE PERCENT MAN 2 % (0-0); NEUTROPHILS ABSOLUTE MAN 91.38 K/mm3 (1.96-9.15); SEG NEUTROPHILS PERCENT MAN 94 % (41-73); TOTAL CELLS COUNTED 100
--- NOTE | 2022-08-18 06:47 | NUR ---
SHIFT SUMMARY PATIENT ALERT AND ORIENTED X 3-4. IS VERY WEAK AND HAS NOT GOTTEN OUT OF BED, DOES SIT UPRIGHT IN THE BED. CAN HAVE SOME DIFFICULTY FOLLOWING DIRECTIONS. PATIENT REPORTS SHE IS FEELING BETTER AND JUST WANTS TO GET HOME TO HER DOGS. PATIENT DENIES CHEST PAIN OR SHORTNESS OF BREATH. PATIENT IS ON 2 LITERS O2 VIA NC. HEART RATE 110'S-120'S. BLOOD PRESSURE REMAINS SOFT, MAP STAYED ABOVE 65. NO ACUTE ISSUES NOTED OVERNIGHT. PATIENT EDUCATED ON FIRE SAFETY AND IGNITION SOURCES IN THE HOSPITAL. WILL CONTINUE TO MONITOR. CALL LIGHT WITHIN REACH.
[2022-08-18 07:24] VITALS: BP 93/57
[2022-08-18 08:13] LABS: COMPLEMENT C3, SERUM 180 mg/dL (82-167)
--- NOTE | 2022-08-18 09:20 | NUR ---
Spoke with Dr Barron prior to visit and discussed case. Pt is agreeable to hospice services. Pt resting in bed with her eyes closed upon arrival. Pt wakes to gentle verbal stimuli. Pt denies pain at this time. Confirmed with Pt regarding hospice with Pt reporting hospice is her goal. She reports no preference for hospice agencies. She is agreeable for this RN to call daughter in law to relay plan and to determine hospice preference. Attempted to call daughter in law Corinne. Left message with request for a return phone call. Palliative Care will remain available
[2022-08-18] MEDS ORDERED: GABA400 PO (11:31)
[2022-08-18] MEDS ORDERED: LEVO750 PO (11:32)
[2022-08-18] MEDS ORDERED: LACT PO (11:32)
[2022-08-18] MEDS ORDERED: VISBIOME 112.51 EACH PO (11:32)
[2022-08-18 12:42] LABS: Vancomycin, Random 8.3 ug/mL
--- NOTE | 2022-08-18 13:41 | NUR ---
Received report family has arrived and are requesting this PC RN. Pt resting in bed upon arrival. Pt denies pain at this time. Daughter in law and son at bedside. Discussed Pt's choice for hospice services. Educated on hospice philosophy and answered questions. Discussed hospice agencies to choose from. Family reports they will discuss and let staff know. Palliative Care will remain available
[2022-08-18 13:48] VITALS: BP 86/43
[2022-08-18 14:00] VITALS: BP 88/62
[2022-08-18 15:02] VITALS: BP 94/74
--- NOTE | 2022-08-18 15:17 | NUR ---
discharge summary PT ALERT, ORIENTED. EAGAR TO GO HOME "AND SEE FURBABIES". VSS, BP SOFT WHICH HAS BEEN THE TREND FOR PT, MAP >60. PT TO GO HOME WITH HOSPICE. DISCHARGE PAPERWORK REVIEWED, MEDICATIONS REVIEWED AND SENT TO [facility]. PT VERBALIZED UNDERSTANDING. IV'S REMOVED. ATTENDS CHANGED, HELPED CHANGE INTO HOME CLOTHES. PT'S DAUGHTER IN LAW CONTACTED, VERABLIZED SHE WOULD COME PICK PT UP. PT AWAITING RIDE SITTING IN RECLINER. CALL LIGHT IN REACH.
[2022-08-19 06:03] LABS: IMMUNOGLOBULIN A, QN, SERUM 234 mg/dL (87-352); IMMUNOGLOBULIN G, QN, SERUM 1426 mg/dL (586-1602); IMMUNOGLOBULIN M, QN, SERUM 209 mg/dL (26-217)
== END 2022-08-18 17:05 | disposition hospice, home (50) | DRG 871 ==
LOC: ER 18:21 → PCU 23:01
PROVIDERS: Emergency Medicine; Family Medicine; Internal Medicine Hematology & Oncology; Student in an Organized Health Care Education/Training Program; ADMIT Internal Medicine
PROC: 3E03329 Introduction of Other Anti-infective into Peripheral Vein, Percutaneous Approach (ICD-10-PCS; 2022-08-16)
PROC: 5A09357 Assistance with Respiratory Ventilation, Less than 24 Consecutive Hours, Continuous Positive Airway Pressure (ICD-10-PCS; 2022-08-16)
PROC: 4A033R1 Measurement of Arterial Saturation, Peripheral, Percutaneous Approach (ICD-10-PCS; principal; 2022-08-17)
DX: A41.9 Sepsis, unspecified organism (principal); I50.43 Acute on chronic combined systolic (congestive) and diastolic (congestive) heart failure; J18.9 Pneumonia, unspecified organism; N17.9 Acute kidney failure, unspecified; E87.1 Hypo-osmolality and hyponatremia; E87.21 Acute metabolic acidosis; E87.4 Mixed disorder of acid-base balance; I42.8 Other cardiomyopathies; R64 Cachexia; Z68.1 Body mass index [BMI] 19.9 or less, adult; J44.0 Chronic obstructive pulmonary disease with (acute) lower respiratory infection; Z66 Do not resuscitate; Z51.5 Encounter for palliative care; D64.9 Anemia, unspecified; R65.20 Severe sepsis without septic shock; B18.2 Chronic viral hepatitis C; J44.9 Chronic obstructive pulmonary disease, unspecified; N28.1 Cyst of kidney, acquired; D75.1 Secondary polycythemia; E88.09 Other disorders of plasma-protein metabolism, not elsewhere classified; F15.10 Other stimulant abuse, uncomplicated; F17.210 Nicotine dependence, cigarettes, uncomplicated; Z20.822 Contact with and (suspected) exposure to COVID-19; F12.10 Cannabis abuse, uncomplicated; Z88.5 Allergy status to narcotic agent; Z88.0 Allergy status to penicillin; Z91.038 Other insect allergy status; Z79.51 Long term (current) use of inhaled steroids; Z79.82 Long term (current) use of aspirin; Z79.899 Other long term (current) drug therapy; Z80.6 Family history of leukemia
CPT/HCPCS: 0241U; 36415; 36600; 71045; 71250; 74176; 76770; 80053; 80202; 81001; 82607; 82728; 82746; 82784; 82803; 82947; 83540; 83550; 83605; 83735; 83880; 84145; 84443; 84484; 84550; 85025; 87449; 93005; 93010; 94640; 94644; 94660; 94664; 94762; 96365; 96367; 97112; 97162; 97530; 99285-25; A9270; J0456; J0696; J1650; J1956; J3370; J7030; J7050; P9612